=== PATIENT | female | born 1975 | race Caucasian/White ===

== ENCOUNTER 2023-05-15 07:57 | Outpatient (CLI) | payer BC | END 2023-05-15 07:58 | disposition home or self-care (01) | LOC: BICMAMMO 07:57 | PROVIDERS: ATTEND Student in an Organized Health Care Education/Training Program | DX: N63.10 Unspecified lump in the right breast, unspecified quadrant (principal); N63.20 Unspecified lump in the left breast, unspecified quadrant | CPT/HCPCS: 76642; 77066; G0279 ==

== ENCOUNTER 2024-12-01 09:36 | Emergency (ER) | payer BC ==
[2024-12-01 10:22] LABS: #Basophils 0.05 10x3/uL (0.0-0.2); #Eosinophils 0.12 10x3/uL (0.0-0.7); #Monocytes 0.35 10x3/uL (0.11-0.59); #Neutrophils 5.85 10x3/uL (1.40-6.50); %Basophils 0.6 % (0.0-1.0); %Eosinophils 1.4 % (0.0-10.0); %Lymphocytes 25.0 % (21.0-51.0); %Monocytes 4.1 % (0.0-10.0); %Neutrophils 68.7 % (42.0-75.0); Hematocrit 37.6 % (36.0-47.0); Hemoglobin 12.8 g/dL (12.0-16.0); Mean Corpuscular Hemoglobin 31.4 pg (27.0-31.0); Mean Corpuscular Volume 92.4 fL (78.0-98.0); Platelet Count 108 10x3/uL (130-400); Red Blood Cell (RBC) Count 4.07 mill/uL (4.20-5.40); White Blood Cell (WBC) Count 8.52 10x3/uL (4.8-10.8)
[2024-12-01 10:33] LABS: Troponin I Less than 0.010 ng/mL (< 0.028)
[2024-12-01 10:36] LABS: ALT (SGPT) 18 U/L (Less than 34); AST (SGOT) 22 U/L (11-34); Albumin 3.3 g/dL (3.1-4.5); Alkaline Phosphatase 106 U/L (40-110); Anion Gap 13 mmol/L (10-20); BUN (Urea Nitrogen) 10 mg/dL (7.0-18.7); Bilirubin, Total 0.6 mg/dL (0.3-1.2); Calc. Creatinine Clearance 0 mL/min (70-130); Calcium 8.6 mg/dL (7.8-10.44); Carbon Dioxide 23 mmol/L (22-29); Chloride 106 mmol/L (98-107); Globulin 3.6 g/dL (2.4-3.5); Glucose 152 mg/dL (70-105); Potassium 3.3 mmol/L (3.5-5.1); Sodium 139 mmol/L (136-145)
[2024-12-01 10:43] LABS: Platelet Adequacy Comment Platelets Decreased; RBC Morphology Within Normal Limits
== END 2024-12-01 12:00 | disposition home or self-care (01) ==
LOC: ERS 09:36
DX: R55 Syncope and collapse (principal); E11.9 Type 2 diabetes mellitus without complications; F17.290 Nicotine dependence, other tobacco product, uncomplicated; F17.200 Nicotine dependence, unspecified, uncomplicated; Z79.84 Long term (current) use of oral hypoglycemic drugs
CPT/HCPCS: 80053; 84484; 85025; 93005; 96360

== ENCOUNTER 2024-12-02 07:50 | Outpatient (CLI) | payer BC | END 2024-12-02 07:51 | disposition home or self-care (01) | LOC: ULT 07:50 | PROVIDERS: ATTEND Internal Medicine Gastroenterology | DX: K74.60 Unspecified cirrhosis of liver (principal); R16.1 Splenomegaly, not elsewhere classified; R18.8 Other ascites | CPT/HCPCS: 76705 ==